=== PATIENT | male | born 1955 | race American Indian/Alaskan Native ===

== ENCOUNTER 2016-12-01 09:04 | Emergency (ER) | payer MEDICARE ==
[2016-12-01 09:28] VITALS: BP 136/97
--- NOTE | 2016-12-01 10:36 | XRay Report ---
RIGHT SHOULDER: History: Right shoulder pain. Mild osteoarthritic changes are identified at the a.c. joint and glenohumeral joint. No evidence for fracture, dislocation, ligamentous injury or bone lesion. The soft tissues are unremarkable. IMPRESSION: Mild osteoarthritic changes. No acute process identified.
--- NOTE | 2016-12-01 11:13 | Emergency Department Report ---
ED Upper Extremity Inj HPI - General Chief Complaint: Shoulder Injury Stated Complaint: FELL IN SHOWER/ HURT SHOULDER Time Seen by Provider: 12/01/16 11:07 Source: patient Mode of arrival: Ambulatory Limitations: No Limitations - History of Present Illness Initial Comments: Pt is a 61 yo male presents to ED [facility] shoulder painx 1 day. States he was in the shower last night and caught himself from falling by pulling with his right hand on the bar handle and twisted it .Pt states he did not fall ,hit his head or had any trauma to shoulder, Complaint: Injury to:: right Onset/Timin -: days(s) Other Extremity Injury: Shoulder: Right Other Injuries: none Handedness: right Place: home Severity scale (0 -10): 4 Improves With: none Worsens With: movement of extremity Context: fall Associated Symptoms: denies: weakness, numbness, neck pain, suspects foreign body, nausea/vomiting, heard/felt popping sensat - Related Data Home Medications Medication Instructions Recorded Confirmed Last Taken Lisinopril/Hydrochlorothiazide 1 tab PO BID 08/05/14 08/05/14 08/05/14 [Zestoretic 20-25 mg] Naproxen [Naprosyn TAB] 500 mg PO BID PRN 08/05/14 08/05/14 08/05/14 cloNIDine [Catapres] 0.1 mg PO DAILY PRN 08/05/14 08/05/14 08/05/14 Previous Rx's Medication Instructions Recorded Last Taken Type Aspirin [Aspirin TAB] 325 mg PO QDAY tablet 08/06/14 Unknown Rx Diltiazem Cd [Cardizem CD] 240 mg PO QDAY #30 capsule 08/06/14 Unknown Rx Cyclobenzaprine [Flexeril] 10 mg PO QHS PRN #24 tablet 12/01/16 Unknown Rx Naproxen [Naprosyn] 500 mg PO BID #40 tablet 12/01/16 Unknown Rx Allergies Allergy/AdvReac Type Severity Reaction Status Date / Time Penicillins Allergy Anaphylaxis Verified 12/01/16 09:21 ED Review of Systems ROS: Stated complaint: FELL IN SHOWER/ HURT SHOULDER Other details as noted in HPI Constitutional: denies: chills, fever Eyes: denies: eye pain, eye discharge, vision change ENT: denies: ear pain, throat pain Respiratory: denies: cough, shortness of breath, wheezing Cardiovascular: denies: chest pain, palpitations Endocrine: no symptoms reported Gastrointestinal: denies: abdominal pain, nausea, diarrhea Genitourinary: denies: urgency, dysuria Musculoskeletal: denies: back pain, joint swelling, arthralgia Skin: denies: rash, lesions Neurological: denies: headache, weakness, paresthesias Psychiatric: denies: anxiety, depression Hematological/Lymphatic: denies: easy bleeding, easy bruising ED Past Medical Hx - Past Medical History Hx Hypertension: Yes Hx Arthritis: Yes (osteoarthritis) Hx Psychiatric Treatment: Yes (anxiety) Hx COPD: Yes Additional medical history: palpitations. glaucoma. heart murmur - Surgical History Additional Surgical History: bilateral total knee replacement - Social History Smoking Status: Current Every Day Smoker Substance Use Type: Alcohol - Medications Home Medications: Home Medications Medication Instructions Recorded Confirmed Last Taken Type Lisinopril/Hydrochlorothiazide 1 tab PO BID 08/05/14 08/05/14 08/05/14 History [Zestoretic 20-25 mg] Naproxen [Naprosyn TAB] 500 mg PO BID PRN 08/05/14 08/05/14 08/05/14 History cloNIDine [Catapres] 0.1 mg PO DAILY PRN 08/05/14 08/05/14 08/05/14 History Aspirin [Aspirin TAB] 325 mg PO QDAY tablet 08/06/14 Unknown Rx Diltiazem Cd [Cardizem CD] 240 mg PO QDAY #30 capsule 08/06/14 Unknown Rx Cyclobenzaprine [Flexeril] 10 mg PO QHS PRN #24 tablet 12/01/16 Unknown Rx Naproxen [Naprosyn] 500 mg PO BID #40 tablet 12/01/16 Unknown Rx ED Physical Exam - General Limitations: No Limitations General appearance: alert, in no apparent distress - Head Head exam: Present: atraumatic, normocephalic - Eye Eye exam: Present: normal appearance - ENT ENT exam: Present: mucous membranes moist - Neck Neck exam: Present: normal inspection - Respiratory Respiratory exam: Present: normal lung sounds bilaterally. Absent: respiratory distress - Cardiovascular Cardiovascular Exam: Present: regular rate, normal rhythm. Absent: systolic murmur, diastolic murmur, rubs, gallop - GI/Abdominal GI/Abdominal exam: Present: soft, normal bowel sounds - Rectal Rectal exam: Present: deferred - Extremities Exam Extremities exam: Present: normal inspection, full ROM, tenderness, normal capillary refill. Absent: pedal edema, joint swelling, calf tenderness - Expanded Upper Extremity Exam Right General: Present: normal inspection Shoulder Exam: Present: normal inspection, tenderness (lateral aspect of shouolder). Absent: swelling, deformity, crepidus, dislocation Upper Arm exam: Present: normal inspection Elbow exam: Present: normal inspection Forearm Wrist exam: Present: normal inspection - Back Exam Back exam: Present: normal inspection - Neurological Exam Neurological exam: Present: alert, oriented X3 - Psychiatric Psychiatric exam: Present: normal affect, normal mood - Skin Skin exam: Present: warm, dry, intact, normal color. Absent: rash ED Course Vital Signs 12/01/16 09:25 Temperature 98.0 F Pulse Rate 74 Respiratory 17 Rate Blood Pressure 136/97 O2 Sat by Pulse 99 Oximetry Critical care attestation.: If time is entered above; I have spent that time in minutes in the direct care of this critically ill patient, excluding procedure time. ED Disposition Clinical Impression: Muscle strain, shoulder region Qualifiers: Encounter type: initial encounter Laterality: right Qualified Code(s): S46.911A - Strain of unspecified muscle, fascia and tendon at shoulder and upper arm level, right arm, initial encounter Disposition: TO HOME OR SELFCARE Is pt being admited?: No Does the pt Need Aspirin: No Condition: Stable Instructions: Muscle Strain (ED), Trigger Point Pain (ED), Heat Pack Application (ED) Additional Instructions: heat application tid f/u with pcp Prescriptions: Cyclobenzaprine [Flexeril] 10 mg PO QHS PRN #24 tablet PRN Reason: Muscle Spasm Naproxen [Naprosyn] 500 mg PO BID #40 tablet Referrals: PRIMARY CAREMD [Primary Care Provider] - 3-5 Days SERENE PIKE MD [Referring] - 3-5 Days [facility] [Outside] - 3-5 Days [facility] [Outside] - 3-5 Days [facility] [Outside] - 3-5 Days Forms: Accompanied Note, Work/School Release Form(ED) Time of Disposition: 11:34
== END 2016-12-01 11:46 | disposition home or self-care (01) ==
LOC: ED 09:04
DX: S46.911A Strain of unspecified muscle, fascia and tendon at shoulder and upper arm level, right arm, initial encounter (principal); I10 Essential (primary) hypertension; J44.9 Chronic obstructive pulmonary disease, unspecified; F17.200 Nicotine dependence, unspecified, uncomplicated